=== PATIENT | male | born 1975 | race Caucasian/White ===

== ENCOUNTER 2022-02-28 01:34 | Emergency (ER) | payer OTHER, BC ==
[2022-02-28] MEDS: Acetaminophen/HYDROcodone 325-5 MG Tab PO ONE ×2 (01:50→03:56)
[2022-02-28] MEDS: Take Home: Acetaminophen/oxyCODONE 325-5 MG, 5 Tab Pack PO ONE (03:57)
== END 2022-02-28 04:05 | disposition home or self-care (01) ==
LOC: VM.ED 01:34
DX: S22.41XA Multiple fractures of ribs, right side, initial encounter for closed fracture (principal); S00.81XA Abrasion of other part of head, initial encounter; V86.69XA Passenger of other special all-terrain or other off-road motor vehicle injured in nontraffic accident, initial encounter; Y92.410 Unspecified street and highway as the place of occurrence of the external cause
CPT/HCPCS: 71101; 73010; 99283; A9270